=== PATIENT | male | born 1995 | race African-American/Black ===

== ENCOUNTER 2024-06-19 16:09 | Emergency (ER) | payer BC, OTHER ==
[2024-06-19 16:17] VITALS: TEMP 98.3; BMI 24.4
[2024-06-19] MEDS: SODIUM CHLORIDE 0.9% 500 ML INFUS.BAG IV ONE (17:23)
[2024-06-19 17:24] LABS: BASO % 0.4 % (0-2.0); HEMATOCRIT 45.2 % (35.4-49); HEMOGLOBIN 15.7 GM/dL (11.7-16.9); LYMPH % 10.2 % (8-40); MCH 30.4 pg (25.7-33.7); MCHC 34.8 g/dl (32.0-35.9); MEAN CELL VOLUME 87.5 fl (80-96); MEAN PLT VOLUME 6.8 fl (7.5-11.1); MONO % 4.5 % (3.8-10.2); NEUT % 84.9 % (42.8-82.8); PLATELET COUNT 315 10^3/uL (134-434); RBC 5.17 M/mm3 (4.00-5.60); RDW 12.8 % (11.9-15.9); WHITE BLOOD COUNT 11.5 K/mm3 (4.0-10.0)
[2024-06-19 17:36] LABS: POTASSIUM 3.6 mmol/L (3.5-5.1)
[2024-06-19 17:38] LABS: ALBUMIN 4.5 g/dl (3.4-5.0); CALCIUM 9.3 mg/dL (8.5-10.1)
[2024-06-19 17:39] LABS: BLOOD UREA NITROGEN 12.4 mg/dL (7-18)
[2024-06-19 17:42] LABS: CREATININE 1.3 mg/dL (0.55-1.3)
[2024-06-19 17:43] LABS: BILIRUBIN,TOTAL 0.7 mg/dL (0.2-1); TOT PROT 8.2 g/dl (6.4-8.2)
[2024-06-19 17:57] VITALS: BP 142/82; PULSE 77; RESP 18
[2024-06-19 18:31] LABS: HIV INTERPRETATION NEGATIVE (NEGATIVE)
== END 2024-06-19 17:58 | disposition home or self-care (01) ==
LOC: JER 16:09
DX: R00.0 Tachycardia, unspecified (principal); R07.9 Chest pain, unspecified; R06.02 Shortness of breath; F41.9 Anxiety disorder, unspecified
CPT/HCPCS: 36415; 71046-TC-FY; 80053; 82550; 84484; 85025; 86803; 87389; 93005; 93010; 99285-25